=== PATIENT | female | born 1960 | race Caucasian/White ===

== ENCOUNTER → 2020-05-22 | Outpatient (CLI) | payer BC, OTHER ==
[~2020-05-22] MED LIST: HYDROCODONE-AP1 EAC6 PO; PROZAC40 MG; TOPAMAX50 MG; YASMIN 28 TABL1 EACH PO; ZANAFLEX2 M1 PO
== END ==
LOC: LAB 07:22
PROVIDERS: ATTEND Family Medicine
DX: Z20.828 Contact with and (suspected) exposure to other viral communicable diseases (principal)